=== PATIENT | female | born 1980 | race Caucasian/White ===

== ENCOUNTER 2023-01-03 01:42 | Emergency (ER) | payer BC ==
[~2023-01-03] VITALS: Ht 162.6 cm; Wt 52.2 kg
[2023-01-03] MEDS ORDERED: ONDANSETRON 4 MG/2 ML VIAL IV ONE (02:15)
[2023-01-03] MEDS ORDERED: KETOROLAC TROMETHAMINE 30 MG INJ IVP ONE (02:15)
[2023-01-03] MEDS ORDERED: HYDROMORPHONE 1 MG/1 ML DISP.SYRIN IV ONE (02:15)
[2023-01-03 02:28] LABS: MEAN CORPUSCULAR HEMOGLOBIN 29.1 uug (24.7-32.8); MEAN CORPUSCULAR VOLUME 87.4 fL (75.5-95.3); PLATELET COUNT (AUTO) 260 K/uL (179-408)
[2023-01-03] MEDS ORDERED: HYDROMORPHONE 1 MG/1 ML DISP.SYRIN ONE (02:30)
[2023-01-03] MEDS ORDERED: ONDANSETRON 4 MG/2 ML VIAL ONE (02:30)
[2023-01-03] MEDS ORDERED: KETOROLAC TROMETHAMINE 30 MG INJ ONE (02:30)
[2023-01-03 02:46] LABS: *BLOOD, URINE 2+ (NEGATIVE); *COLOR,URINE YELLOW (YELLOW); *KETONES,URINE 3+ (NEGATIVE); LEUKOCYTE ESTERASE ,URINE TRACE (NEGATIVE); NITRITE, URINE NEGATIVE (NEGATIVE); UGLUCOSE NEGATIVE (NEGATIVE)
[2023-01-03 02:47] LABS: CREATININE 0.8 mg/dL (0.6-1.3); POTASSIUM 3.7 mmol/L (3.5-5.1)
[2023-01-03 02:53] LABS: BILIRUBIN,TOTAL 0.7 mg/dL (0.2-1.0); TOTAL PROTEIN, SERUM 7.4 g/dL (6.4-8.2)
[2023-01-03 03:16] LABS: *BILIRUBIN,URIN 2+ (NEGATIVE)
[2023-01-03 03:17] LABS: *URINE HCG, QUAL NEGATIVE (NEGATIVE)
[2023-01-03 03:30] LABS: RBC,URINE 20-50 /HPF (0-3)
[2023-01-03 03:31] LABS: BACTERIA,URINE FEW /HPF (NONE SEEN); SQUAMOUS EPITHELIAL CELL,UR MODERATE /HPF (NONE SEEN)
[2023-01-03] MEDS ORDERED: ONDA4TAB5 PO (04:12)
[2023-01-03] MEDS ORDERED: IBUP-1490 PO (04:12)
[2023-01-03] MEDS ORDERED: HYDR-4209 PO (04:12)
--- NOTE | 2023-01-03 04:29 | NUR ---
Patient discharged to home in stable condition. Written and verbal after care instructions given. Patient verbalizes understanding of instructions. Stressed follow up or return to ER for worsening s/s. Patient walked out with steady gait.
[2023-01-03 04:32] VITALS: BP 122/71
== END 2023-01-03 04:34 | disposition home or self-care (01) ==
LOC: ER 01:52
DX: K80.20 Calculus of gallbladder without cholecystitis without obstruction (principal); Z20.822 Contact with and (suspected) exposure to COVID-19; R31.29 Other microscopic hematuria; Z88.6 Allergy status to analgesic agent; Z88.0 Allergy status to penicillin
CPT/HCPCS: 99285; 74176; 96374; 76705; 96375; 87426; 80053; 81001; 84703; 83690; 85025; 36415; 87040; J1885; J2405; J1170; A4663

== ENCOUNTER 2023-12-26 22:36 | Emergency (ER) | payer BC, OTHER ==
[~2023-12-26] VITALS: Ht 162.6 cm; Wt 49.9 kg
[~2023-12-26 22:36] MED LIST: HYDR-4209 PO; IBUP-1490 PO; ONDA4TAB5 PO
[2023-12-26 23:31] LABS: *BILIRUBIN,URIN NEGATIVE (NEGATIVE); *BLOOD, URINE 2+ (NEGATIVE); *CLARITY,URINE CLEAR (CLEAR); *COLOR,URINE YELLOW (YELLOW); *KETONES,URINE NEGATIVE (NEGATIVE); *PROTEIN,URINE NEGATIVE (NEGATIVE); *UROBILINOGEN,URINE 0.2 E.U./dl (NORMAL); LEUKOCYTE ESTERASE ,URINE NEGATIVE (NEGATIVE); NITRITE, URINE NEGATIVE (NEGATIVE); PH,URINE 6.5 (5.0-8.0); UGLUCOSE NEGATIVE (NEGATIVE)
[2023-12-26 23:34] LABS: *URINE HCG, QUAL NEGATIVE (NEGATIVE)
[2023-12-26 23:36] LABS: BASOPHILS # (AUTO) 0.2 K/UL (0.0-0.2); BASOPHILS % (AUTO) 1.4 % (0.0-2.0); EOSINOPHILS % (AUTO) 0.1 % (0.0-7.0); HEMATOCRIT 35.6 % (31.2-41.9); HEMOGLOBIN 11.8 g/dL (10.9-14.3); LYMPHOCYTES # (AUTO) 0.8 K/uL (0.8-4.8); LYMPHOCYTES % (AUTO) 6.8 % (20.5-51.5); MEAN CORPUSCULAR HEMOGLOBIN 29.5 uug (24.7-32.8); MEAN CORPUSCULAR HGB CONC 33 g/dL (32.3-35.6); MEAN CORPUSCULAR VOLUME 88.7 fL (75.5-95.3); MONOCYTES # (AUTO) 0.8 K/uL (0.1-1.30); MONOCYTES % (AUTO) 6.8 % (0.0-11.0); NEUTROPHILS # (AUTO) 9.6 K/uL (1.8-8.9); NEUTROPHILS % (AUTO) 84.9 % (38.5-71.5); PLATELET COUNT (AUTO) 226 K/uL (179-408); RED BLOOD CELL COUNT(AUTO) 4.01 MIL/uL (3.63-4.92); RED CELL DISTRIBUTION WIDTH 14.5 % (12.3-17.7); WHITE BLOOD COUNT (AUTO) 11.3 K/uL (3.8-11.8)
[2023-12-26 23:47] LABS: DIFFERENTIAL COMMENT 1
[2023-12-26 23:48] LABS: BACTERIA,URINE FEW /HPF (NONE SEEN); RBC,URINE 50-80 /HPF (0-3); WBC,URINE 0-3 /HPF (0-3)
[2023-12-26 23:49] LABS: SQUAMOUS EPITHELIAL CELL,UR FEW /HPF (NONE SEEN)
[2023-12-26 23:55] LABS: CALCIUM 8.4 mg/dL (8.5-10.1); CREATININE 0.9 mg/dL (0.6-1.3); POTASSIUM 4.3 mmol/L (3.5-5.1)
[2023-12-26 23:59] LABS: ALBUMIN 3.6 g/dL (3.4-5.0); BILIRUBIN,DIRECT 0.3 mg/dL (0.0-0.2); BILIRUBIN,TOTAL 0.7 mg/dL (0.2-1.0); TOTAL PROTEIN, SERUM 7.1 g/dL (6.4-8.2)
[2023-12-27] MEDS ORDERED: NABU-140 PO (04:58)
[2023-12-27 05:05] VITALS: BP 90/58; TEMP 98; O2SAT 99
== END 2023-12-27 05:10 | disposition home or self-care (01) ==
LOC: ER 22:41
DX: K85.90 Acute pancreatitis without necrosis or infection, unspecified (principal); R31.29 Other microscopic hematuria; R10.9 Unspecified abdominal pain; R10.2 Pelvic and perineal pain; K75.9 Inflammatory liver disease, unspecified; Z98.890 Other specified postprocedural states; Z79.899 Other long term (current) drug therapy; Z88.5 Allergy status to narcotic agent; Z88.0 Allergy status to penicillin
CPT/HCPCS: 36415; 83690; 84703; 85025; A4606; A4663